=== PATIENT | female | born 1995 | race Caucasian/White ===

== ENCOUNTER 2020-05-26 15:37 | Outpatient (CLI) | payer BC ==
--- NOTE | 2020-05-26 16:55 | MRI ---
MRI CERVICAL SPINE WITHOUT CONTRAST: 05/26/20 INDICATIONS: Neck pain. FINDINGS: The cervical vertebrae maintain normal height and alignment and exhibit normal signal. The disc space s are normally maintained and exhibit normal signal. There is no evidence of significant disc bulge or disc protrusion at any of the visualized cervical l evels. Anterior subarachnoid space and spinal canal are generous and normally maintained. There is no evidence of central canal stenosis or foraminal stenosis. Cervical cord signal appears normal. IMPRESSION: Unremarkable MRI of cervical spine. POS: [facility]
== END 2020-05-26 15:38 | disposition home or self-care (01) ==
LOC: SCSMRI 15:37
PROVIDERS: ATTEND Chiropractor
DX: M54.2 Cervicalgia (principal); M54.6 Pain in thoracic spine; M54.5 Low back pain; G54.0 Brachial plexus disorders
CPT/HCPCS: 72141